=== PATIENT | male | born 2000 | race Caucasian/White ===

== ENCOUNTER 2024-05-08 21:18 | Emergency (ER) | payer SELFPAY ==
[~2024-05-08] VITALS: Ht 170.2 cm; Wt 63.5 kg
[2024-05-08 21:22] VITALS: BP 165/85; PULSE 170; RESP 24; TEMP 97.6; O2SAT 99
[2024-05-08] MEDS ORDERED: LORazepam 2 MG/ML VIAL ONE (21:25)
[2024-05-08] MEDS ORDERED: HALOPERIDOL IM 5 MG/ML VIAL ONE (21:25)
[2024-05-08] MEDS ORDERED: diphenhydrAMINE 50 MG/ML VIAL ONE (21:25)
[2024-05-08] MEDS: HALOPERIDOL IM 5 MG/ML VIAL IM ONE ×2 (21:34→21:36)
[2024-05-08] MEDS: LORazepam 2 MG/ML VIAL IM ONE ×2 (21:34→21:36)
[2024-05-08] MEDS: diphenhydrAMINE 50 MG/ML VIAL IM ONE ×2 (21:34→21:36)
[2024-05-09 04:08] VITALS: BP 93/15; PULSE 74; RESP 16; O2SAT 97
[2024-05-09] MEDS ORDERED: BACITRACIN OINT 500 UNITS/GM PKT TP ONE (05:02)
== END 2024-05-09 05:14 | disposition home or self-care (01) ==
LOC: MED 21:18
DX: F10.129 Alcohol abuse with intoxication, unspecified (principal); F19.10 Other psychoactive substance abuse, uncomplicated; Y90.9 Presence of alcohol in blood, level not specified
CPT/HCPCS: 96372; 99285; J1200; J1630; J2060